=== PATIENT | male | born 1985 | race Caucasian/White ===

== ENCOUNTER 2023-09-23 22:05 | Emergency (ER) | payer MEDICARE, OTHER ==
[~2023-09-23] VITALS: Ht 177.8 cm; Wt 95.3 kg
[2023-09-23] MEDS ORDERED: AMOX-CLAV 875-1 EACH PO (22:24)
== END 2023-09-23 22:26 | disposition home or self-care (01) ==
LOC: ED 22:05
DX: H66.93 Otitis media, unspecified, bilateral (principal)

== ENCOUNTER 2024-08-12 17:45 | Emergency (ER) | payer MEDICARE, OTHER ==
[~2024-08-12] VITALS: Ht 177.8 cm; Wt 90.7 kg
[~2024-08-12 17:45] MED LIST: AMOX-CLAV 875-1 EACH PO
[2024-08-12] MEDS ORDERED: ZITHROMAX250 MG PO (18:34)
[2024-08-12] MEDS ORDERED: AZITHROMYCIN 250 MG TAB PO ONE (18:35)
== END 2024-08-12 19:17 | disposition home or self-care (01) ==
LOC: ED 17:45
DX: H66.91 Otitis media, unspecified, right ear (principal)